=== PATIENT | female | born 1970 ===

== ENCOUNTER 2018-03-20 22:12 | Emergency (ER) | payer MEDICAID ==
--- NOTE | 2018-03-20 23:16 | ED PDOC ---
HPI: Fever Fever Onset Was: 03/20/18 The Fever Was Measured: Oral What Antipyretic Given Prior To Arrival: Acetaminophen, Ibuprofen Recent Sick Contacts: No Have you had recent travel within the past 21 days to any of the following countries: [place], [place], [place] or [place]?: No Does Patient Have Hx Of Febrile Seizures: No Did The Patient Have A Seizure Today: No Symptoms Associated With Fever: Diarrhea (and stomach ache) Additional Comments: 47 yr old F presents with complaint of diffuse pulsating headache 07/11, fever Tmax 104 F and stomach ache. Fever resolved with tylenol and 375mg Naproxen at 9pm today. Associated symptoms are body aches and one episode of diarrhea. PMHx includes intermittent headaches for which she takes tramadol/percocet PRN. Denies taking any tramadol/percocet today. Denies dysuria , vomiting, sore throat, cough, nasal congestion or discharge, ear pain. Did not receive influenza vaccine this year. Has normal urine output, tolerated soup /rice at 5pm. -PMD: Dr. Malhotra. -LMP 03/20/18 <Kasandra Lewis - Last Filed: 03/21/18 01:42> Supervising Attending Note - Supervising Attending Note The Documented history was done by the: Physician Programming Development Project Manager The documented physical exam was done by the: Physician Programming Development Project Manager The documented procedures were done by the: Physician Programming Development Project Manager - Attestation: I have personally seen and examined this patient.: Yes I have fully participated in the care of the patient.: Yes I have reviewed all pertinent clinical information, including history, physical exam and plan: Yes <Hansa Omalley - Last Filed: 03/20/18 23:30> Past Medical History <Hansa Omalley - Last Filed: 03/20/18 23:30> - Medical History PMH: Gastritis Other PMH: intermittent headaches - Surgical History Surgical History: (x 3) - Family History Family History: States: No Known Family Hx - Living Arrangements Living Arrangements: With Family - Social History Current smoker - smoking cessation education provided: No Ex-Smoker (has not smoked in the last 12 months): No Alcohol: Social Drugs: Denies - Immunization History Hx Influenza Vaccination: No <Kasandra Lewis - Last Filed: 05/21/18 01:42> Vital Signs: Last Vital Signs Temp 99 F 03/21/18 00:57 Pulse 116 H 03/21/18 00:46 Resp 18 03/21/18 00:46 BP 117/69 03/21/18 00:46 Pulse Ox 100 03/21/18 01:34 - Allergies Allergies/Adverse Reactions: Allergies Allergy/AdvReac Type Severity Reaction Status Date / Time No Known Allergies Allergy Verified 03/20/18 23:06 Review of Systems Constitutional: Positive for: Fever, Malaise. Negative for: Weakness Eyes: Negative for: Vision Change, Eyelid Inflammation ENT: Negative for: Ear Pain, Nose Discharge, Nose Congestion, Throat Pain Cardiovascular: Negative for: Chest Pain, Light Headedness Respiratory: Negative for: Cough, Shortness of Breath Gastrointestinal: Positive for: Abdominal Pain (crampy, periumbilical). Negative for: Nausea, Vomiting Genitourinary Female: Negative for: Dysuria, Frequency Musculoskeletal: Negative for: Neck Pain, Shoulder Pain, Arm Pain Skin: Negative for: Rash, Lesions Neurological: Positive for: Headache. Negative for: Confusion, Altered Mental Status, Dizziness <Kasandra Lewis - Last Filed: 03/21/18 01:42> Physical Exam - Physical Exam Appears: Positive for: No Acute Distress Head Exam: Positive for: ATRAUMATIC, NORMOCEPHALIC Skin: Positive for: Normal Color, Warm, Dry Eye Exam: Positive for: EOMI, PERRL ENT: Positive for: TM Is/Are (normal bilaterally), Pharyngeal Erythema. Negative for: Nasal Congestion, Tonsillar Exudate Neck: Positive for: Painless ROM, Supple Cardiovascular/Chest: Negative for: Gallop, Murmur Respiratory: Positive for: Normal Breath Sounds. Negative for: Accessory Muscle Use, Crackles, Rhonchi Pulses-Carotid (L): 2+ Pulses-Carotid (R): 2+ Pulses-Radial (L): 2+ Pulses-Radial (R): 2+ Gastrointestinal/Abdominal: Positive for: Bowel Sounds (present), Soft. Negative for: Tenderness, Distended, Guarding, Rebound Back: Negative for: L CVA Tenderness, R CVA Tenderness Extremity: Positive for: Normal ROM. Negative for: Tenderness, Pedal Edema, Calf Tenderness Lymphatic: Negative for: Adenopathy Neurologic/Psych: Positive for: medical receptionist medical assistant II-XII (grossly intact), Oriented, Mood/ Affect (normal/full range). Negative for: Motor/Sensory Deficits <Kasandra Lewis - Last Filed: 03/21/18 01:42> <Hansa Omalley - Last Filed: 03/20/18 23:30> - Laboratory Results Result Diagrams: 03/20/18 23:42 03/20/18 23:42 - ECG O2 Sat by Pulse Oximetry: 100 <Kasandra Lewis - Last Filed: 03/21/18 01:42> - Progress ED Course And Treament: -CBC w/diff: WBC 14.5, neutrophil % 88.2, rest wnl -CMP: wnl -Upreg: negative -Udip: negative -VBG lactate w/ shock panel: -blood culture: -1L NS IV bolus -Toradol 30mg IV once -rapid influenza A/B: negative - 00:40 Patient reported pain has improved. -tylenol 975mg PO once (Kasandra Lewis) Disposition <Hansa Omalley - Last Filed: 03/20/18 23:30> <Kasandra Lewis - Last Filed: 03/21/18 01:42> - Clinical Impression Clinical Impression: Viral syndrome - Disposition Condition: STABLE Instructions: Viral Syndrome (DC) Forms: [facility] ([place]osotho)
[2018-03-20 23:50] LABS: VENOUS BLOOD GAS BASE EXCESS 1.2 mmol/L (0.0-2.0); VENOUS BLOOD GAS PCO2 44 mmHg (40-60); VENOUS BLOOD GAS PO2 27 mm/Hg (30-55); VENOUS BLOOD PH 7.39 (7.32-7.43)
[2018-03-21 00:06] LABS: ALB/GLOB RATIO 1.2 (1.0-2.1); ALBUMIN 4.5 g/dL (3.5-5.0); ALT/SGPT 36 U/L (9-52); AST/SGOT 38 U/L (14-36); BLOOD UREA NITROGEN 15 mg/dl (7-17); CALCIUM 9.5 mg/dL (8.4-10.2); GFR AFRICAN-AMERICAN > 60; GFR NON-AFRICAN AMERICAN > 60
[2018-03-21] MEDS: Sodium Chloride 0.9% 1,000 ML IV SCH ×2 (00:10→00:48)
[2018-03-21 00:17] LABS: BASO % 0.2 % (0.0-2.0); HEMOGLOBIN 13.9 g/dL (12.0-16.0); LYMPH # 0.9 K/uL (1.0-4.3); LYMPH % 6.3 % (20.0-40.0); MEAN CELL VOLUME 90.3 fl (81.0-99.0); MEAN CORPUSCULAR HEMOGLOBIN 31.1 pg (27.0-31.0); MEAN CORPUSCULAR HGB CONC 34.4 g/dL (33.0-37.0); MEAN PLATELET VOLUME 8.4 fl (7.2-11.7); MONO # 0.8 K/uL (0.0-0.8); MONO % 5.3 % (0.0-10.0); NEUT # 12.8 K/uL (1.8-7.0); NEUT % 88.2 % (50.0-75.0); PLATELET COUNT 264 K/uL (130-400); RBC 4.48 Mil/uL (3.80-5.20); RED CELL DISTRIBUTION WIDTH 13.2 % (11.5-14.5); WHITE BLOOD COUNT 14.5 K/uL (4.8-10.8)
[2018-03-21] MEDS ORDERED: Sodium Chloride 0.9% 1,000 ML IV STA (01:26)
[2018-03-21 01:46] VITALS: BP 111/67; TEMP 98.4
[2018-03-21 02:11] LABS: BANDS 2 % (0-2); EOSINOPHIL 3 % (0-7); LYMPHOCYTE 2 % (20-50); MONOCYTE 4 % (0-10); NEUTROPHIL 86 % (42-75); REACTIVE LYMPHOCYTES 3 % (0-0); TOTAL CELLS COUNTED 100
[2018-03-21 02:12] LABS: PLATELET ESTIMATE NORMAL (NORMAL)
[2018-03-21 02:24] VITALS: PULSE 99; RESP 17; O2SAT 100
== END 2018-03-21 02:34 | disposition home or self-care (01) ==
LOC: H.ER 22:12
DX: B34.9 Viral infection, unspecified (principal); Z87.891 Personal history of nicotine dependence
CPT/HCPCS: 80053; 81025; 82803; 85025; 87040; 87804; 96361; 96374; 99285; J1885; J7040